=== PATIENT | female | born 1995 | race Caucasian/White ===

== ENCOUNTER 2024-02-06 06:45 | Day surgery (SDC) | payer OTHER ==
[2024-02-05 12:37] LABS: BASOPHILS # (AUTO) 0.02 K/uL (0.00-0.20); BASOPHILS % (AUTO) 0.2 % (0.0-5.0); EOSINOPHILS # (AUTO) 0.09 K/uL (0.00-0.70); HEMATOCRIT 40.1 % (36-48); IMMATURE GRANULOCYTE ABSOLUTE 0.02 K/uL (0-1); LYMPHOCYTES # (AUTO) 1.8 K/uL (1.0-4.8); LYMPHOCYTES % (AUTO) 19.7 % (21.0-51.0); MEAN CORPUSCULAR HEMOGLOBIN 28.3 pg (27.0-33.0); MEAN CORPUSCULAR HGB CONC 32.7 g/dL (32.0-36.0); MEAN CORPUSCULAR VOLUME 86.6 fL (79-99); MONOCYTES # (AUTO) 0.4 K/uL (0.1-1.0); MONOCYTES % (AUTO) 4.8 % (3.0-13.0); NEUTROPHILS # (AUTO) 6.7 K/uL (1.8-7.7); NEUTROPHILS % (AUTO) 74.1 % (40.0-77.0); PLATELET COUNT (AUTO) 399 K/uL (130-400); RED BLOOD CELL COUNT(AUTO) 4.63 MIL/uL (4.00-5.50); RED CELL DISTRIBUTION WIDTH 12.9 % (11.0-15.5); WHITE BLOOD COUNT (AUTO) 9.1 K/uL (4.8-10.8)
[2024-02-05 12:49] LABS: CREATININE 0.8 mg/dL (0.5-1.5); POTASSIUM 4.4 mmol/L (3.5-5.1)
[2024-02-05 12:50] VITALS: BP 128/75; PULSE 68; RESP 18
[2024-02-05 12:50] LABS: INR 0.98 (0.85-1.15); PROTHROMBIN TIME 11.4 SEC (9.6-11.6)
[2024-02-05 12:51] LABS: PARTIAL THROMBOPLASTIN TIME 37.3 SEC (26.3-35.5)
[2024-02-06] VITALS (23 sets, daily range): BP systolic 110–152; BP diastolic 60–88; PULSE 79–120; RESP 12–19
[~2024-02-06] VITALS: Ht 167.6 cm; Wt 122.5 kg
[~2024-02-06 06:45] MED LIST: DOCU-116 PO; IBUP-2070 PO; MULTIVITAMIN PO; ONDA4TAB10 PO; TRAM50TA4 PO; [UNRECOGNIZED DRUG - OTHER] PO
[2024-02-06] MEDS ORDERED: MIDAZOLAM HCL 1 MG/ML 2ML VIAL ONE (07:46)
[2024-02-06] MEDS ORDERED: GLYCOPYRROLATE 0.2 MG/ML 5 ML VIAL ONE (07:46)
[2024-02-06] MEDS ORDERED: DEXAMETHASONE SOD PHOSPHATE 10MG/ML 1ML VIAL ONE ×2 (07:46→10:10)
[2024-02-06] MEDS ORDERED: PROPOFOL 10 MG/ML 20ML VIAL IV ONE (07:46)
[2024-02-06] MEDS ORDERED: LIDOCAINE PF 100MG/5ML (2%) SYRINGE 5ML ONE (07:46)
[2024-02-06] MEDS ORDERED: SUCCINYLCHOLINE CHLORIDE 20 MG/ML 10 ML VIAL ONE (07:46)
[2024-02-06] MEDS ORDERED: NEOSTIGMINE METHYLSULFATE 1MG/ML IV ONE (07:46)
[2024-02-06] MEDS ORDERED: ONDANSETRON 4MG INJ ONE (07:46)
[2024-02-06] MEDS ORDERED: FENTANYL CITRATE PF 50 MCG/1 ML 2ML VIAL ONE ×2 (07:47→10:19)
[2024-02-06] MEDS ORDERED: ROCURONIUM BROMIDE 10MG/1ML 5ML VL ONE (07:47)
[2024-02-06] MEDS ORDERED: CEFAZOLIN SODIUM 1 GM VIAL ONE (08:22)
[2024-02-06] MEDS: CEFAZOLIN SODIUM 2 GM VIAL ONE (08:23)
[2024-02-06] MEDS: LACTATED RINGERS 1000ML 1,000 ML IV ONE (08:24)
[2024-02-06] MEDS ORDERED: ROPIVACAINE 0.5% 5MG/ML 30ML ONE (08:27)
[2024-02-06] MEDS ORDERED: FENTANYL CITRATE PF 50 MCG/1 ML 5ML AMP IV ONE (11:07)
[2024-02-06] MEDS ORDERED: MEPERIDINE-PF 25 MG/ML SYG ONE ×3 (11:53→12:26)
[2024-02-06] MEDS ORDERED: HYDR-4060 PO (12:01)
[2024-02-06] MEDS: ONDANSETRON 4MG INJ ONE (13:10)
[2024-02-06] MEDS: MEPERIDINE-PF 25 MG/ML SYG ONE (13:11)
[2024-02-06] MEDS: METOPROLOL TARTRATE 1 MG/ML 5ML VIAL IV ONE (13:52)
== END 2024-02-06 16:50 | disposition home or self-care (01) ==
LOC: DAH 06:45
PROVIDERS: ATTEND Student in an Organized Health Care Education/Training Program
DX: S82.852A Displaced trimalleolar fracture of left lower leg, initial encounter for closed fracture (principal); E66.01 Morbid (severe) obesity due to excess calories; Z79.01 Long term (current) use of anticoagulants; Z79.899 Other long term (current) drug therapy; Z90.89 Acquired absence of other organs; Z98.890 Other specified postprocedural states; Z82.49 Family history of ischemic heart disease and other diseases of the circulatory system; W10.9XXA Fall (on) (from) unspecified stairs and steps, initial encounter; Y93.89 Activity, other specified; Y92.89 Other specified places as the place of occurrence of the external cause; Y99.8 Other external cause status; Z68.41 Body mass index [BMI] 40.0-44.9, adult
CPT/HCPCS: 80048; 84703; 85025; 85610; 85730; 36415; 27823; 97161; 64445; 64447; 73610; 97116; 97530 ×3; C1713 ×9; A4663; J7120 ×2; A4215 ×2; A4649 ×2; J3010 ×3; J0690 ×2; J3490 ×3; J1100 ×2; J0330; J2001; J2250; J2704; J2405 ×2; J2710; J2175 ×4; J2795; A6223; C1776; A6255; A4223; A4222; A4221; Q4050